=== PATIENT | male | born 1950 | race Caucasian/White ===

== ENCOUNTER 2018-05-03 10:39 | Emergency (ER) | payer OTHER ==
--- OUTSIDE RECORDS SUMMARY | 2018-05-03 11:24 | XMS REPORT ---
:1950 External Reference #:[id number] Author Organization [facility] Address [address], [address] [place] [address] Phone [phone] Care Team Providers Name Role Phone Janine Santos MD Care Team Information Winery Worker Unavailable Janine Santos MD Primary Care Physician Unavailable Payers Type Date Identification Numbers Payment Provider Subscriber Commercial Policy Number: [id number] [employer] [facility] Alley Jerez PayID: [id number] [address] [place] [address] Health Maintenance Expires: Policy Number: Inactice DO Not Alley Jerez [facility] ([facility] [place], [place]) 06/22/2012 [id number] Use PayID: [id number] [facility] Problems Date Description Provider Status Onset: 04/20/2014 Disorder of bursa of shoulder Logan George DGeeO. Active region Onset: 10/11/2016 Essential hypertension Tracy Calderon M.D. Active Onset: 10/11/2016 Mixed hyperlipidemia Tracy Calderon M.D. Active Onset: 03/03/2012 Localized, primary osteoarthritis Anju Huynh [facility] Active of the shoulder region Onset: 02/24/2018 Other hemorrhoids Jerardo Hernandes MD Active Onset: 11/05/2017 Radial styloid tenosynovitis Chelle Bryson MD Active Onset: 11/05/2017 Joint pain in left hand Chelle Bryson MD Active Onset: 08/22/2017 Actinic keratosis Tracy Calderon M.D. Active Onset: 08/22/2017 Insomnia Tracy Calderon M.D. Active Onset: 08/22/2017 Anxiety state Tracy Calderon M.D. Active Onset: 06/24/2017 Screening for malignant neoplasm Gagan Cardozo M.D. 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 soda ( 4-5x weekly) Daily Caffeine Consumes on average 1 cup of regular coffee per day Allergies, Adverse Reactions, Alerts Date Description Reaction Status Severity Comments 04/20/2014 NKDA active Medications Medication Date Status Form Strength Qnty SIG Indications Ordering Provider Zinc Oxide 01/20/ Active Ointment 20% 85.05 1 unit per K64.8 Cecilio 2017 gm rectum , Jerardo, twice a day as needed diclofenac 3% metronidazo le2% nifedipine 0.5%, emollient xematop Paroxetine HCL 09/08/ Active Tablets 30mg 90tab 1 tab by Tom 2017 s mouth every MD Janine day Potassium 11/13/ Active Tablets 20Meq 90tab take one Daryl Santos Jessica ER 2016 ER s tablet by MD Janine mouth every day Amlodipine 10/23/ Active Tablets 2.5mg 90tab 1 tab by Yumiko Besylate 2016 s mouth every Tracy, daily M.D. Fosinopril Sodium 10/15/ Active Tablets 40mg 90tab Take One I10 Valdez Calderon s Tablet By Tracy, Mouth Every M.D. Day Atenolol-Chlortha 10/11/ Active Tablets 100-25mg 90tab Take One I10 tang Calderon 2016 s Tablet By Tracy, Mouth Every M.D. Day Pravastatin / Active Tablets 20mg 90tab take one Tom, Sodium 0000 s tablet by MD Janine mouth every day Multi Complete / Active Capsules 1 by mouth Unknown 0000 every day Fish Oil / Active Capsules 1000mg by mouth Unknown 0000 every day OTC Prostrate / Active 1 po daily Unknown 0000 Metamucil Smooth / Active Powder 58.6% daily Unknown Texture 0000 Fleet Enema 01/20/ Hx Enema 7- 133ml 1 unit per K64.8 Cecilio 2018 - 8ML rectum once , Jerardo, 02/24/ at night 2017 and once in morning Paroxetine HCL 08/22/ Hx Tablets 20mg 90tab 1 by mouth F41.9 Yumiko 2017 - s every day Tracy, 09/08/ M.D. 2017 Paroxetine HCL 07/25/ Hx Tablets 20mg 30tab 1 by mouth F43.0 Yumiko 2017 - s every day Tracy, 08/22/ M.D. 2018 Triazolam 07/03/ Hx Tablets 0.25mg 30tab take one G47.00 Yumiko 2017 - s tablet by Tracy, 11/05/ mouth at M.D. 2018 bedtime as needed for sleep maximum daily dose=1 Reference #: [id number] Cyclobenzaprine 06/24/ Hx Tablets 5mg 1-2 tabs by M62.838 REBECCA Calderon 2017 - mouth every Tracy, 06/24/ night at M.D. 2018 bedtime Cyclobenzaprine 10/11/ Hx Tablets 5mg 30tab 1-2 tabs by M62.838 Yumiko HCL 2016 - s mouth tid Tracy, 06/24/ muscle M.D. 2018 spasms Meloxicam 04/20/ Hx Tablets 15mg 30tab 1 by mouth Doris 2013 - s every day Logan 10/11/ D., D.O. 2016 Anexsia 07/15/ Hx Tablets 5-500mg 40tab take 1-2 Yaima, 2011 - s tablets po MD Kirby 04/21/ q 6hrs prn 2017 pain. Multivitamins 00// Hx Capsules 90cap 1 by mouth Unknown 0000 - s every day 2013 Fish Oil / Hx Capsules Unknown Concentrate 0000 - 2013 Gemfibrozil / Hx Tablets 60tab 1 po bid Unknown 0000 - s 2016 Fosinopril Sodium /00/ Hx Tablets 1 po qd Unknown 0000 - 2016 Atenolol/Chlortha / Hx Tablets 90tab 1 tab po qd Unknown lidone 0000 - s qam 2016 Atenolol / Hx Tablets 100mg 1 by mouth Unknown 0000 - every day 2016 Fosinopril Sodium / Hx Tablets 20mg 1 tab PO Q I10 Unknown 0000 - daily 2016 Pravastatin / Hx Tablets 10mg 30tab one PO qd Clune, Sodium - s in addition Jenniferl 20 mg eigh, DIRECTOR OF OFFICIATING 2017 Medications Administered in Office Medication Date Status Form Strength Qnty SIG Indications Ordering Provider Depomedrol Administered Injection Bryson, 40mg/1cc 018 MD Chelle Depomedrol Administered Injection Huynh, 40mg/1cc 013 JOEL Whitehead Depomedrol Administered Injection Roque, 40mg/1cc 007 Val Craig MD Immunizations CPT Code Status Date Vaccine Lot # [id number] Given 02/26/2018 Influenza High Dose [id number] Given 02/21/2017 Influenza High Dose [id number] Given Unknown Tdap injection Vital Signs Date Vital Result Comment 04/07/2018 BP Systolic Sitting Left Arm 140 mmHg BP Diastolic Sitting Left Arm 78 mmHg Heart Rate 54 /min Respiratory Rate 16 /min Height 71 inches 5'11" Weight 236.00 lb BMI (Body Mass Index) 32.9 kg/m2 BSA (Body Surface Area) 2.26 m2 [place] body weight in kilograms 78 03/04/2018 BP Systolic Sitting Right Arm 132 mmHg BP Diastolic Sitting Right Arm 73 mmHg Body Temperature 97.1 F Heart Rate 46 /min Respiratory Rate 17 /min Height 71 inches 5'11" Weight 236.00 lb BMI (Body Mass Index) 32.9 kg/m2 BSA (Body Surface Area) 2.26 m2 [place] body weight in kilograms 78 O2 % BldC Oximetry 98 % 02/26/2018 BP Systolic 132 mmHg left wrist BP Diastolic 65 mmHg left wrist Body Temperature 97.2 F Heart Rate 58 /min Respiratory Rate 20 /min Height 71 inches 5'11" Weight 233.00 lb BMI (Body Mass Index) 32.5 kg/m2 BSA (Body Surface Area) 2.25 m2 [place] body weight in kilograms 78 O2 % BldC Oximetry 97 % 02/24/2018 BP Systolic Sitting Left Arm 140 mmHg BP Diastolic Sitting Left Arm 80 mmHg Heart Rate 56 /min Respiratory Rate 16 /min Height 71 inches 5'11" Weight 233.00 lb BMI (Body Mass Index) 32.5 kg/m2 BSA (Body Surface Area) 2.25 m2 [place] body weight in kilograms 78 01/20/2018 BP Systolic Sitting Left Arm 126 mmHg BP Diastolic Sitting Left Arm 78 mmHg Heart Rate 56 /min Respiratory Rate 16 /min Height 71 inches 5'11" Weight 234.00 lb BMI (Body Mass Index) 32.6 kg/m2 BSA (Body Surface Area) 2.25 m2 [place] body weight in kilograms 78 12/22/2017 BP Systolic 139 mmHg BP Diastolic 71 mmHg Body Temperature 97.7 F Heart Rate 51 /min Respiratory Rate 16 /min Height 71 inches 5'11" Weight 232.00 lb BMI (Body Mass Index) 32.4 kg/m2 BSA (Body Surface Area) 2.25 m2 [place] body weight in kilograms 78 O2 % BldC Oximetry 97 % Pain Level 0 12/22/2017 BP Systolic Sitting Left Arm 140 mmHg BP Diastolic Sitting Left Arm 66 mmHg Body Temperature 98.0 F Heart Rate 60 /min Respiratory Rate 18 /min Height 71 inches 5'11" Weight 233.00 lb BMI (Body Mass Index) 32.5 kg/m2 BSA (Body Surface Area) 2.25 m2 [place] body weight in kilograms 78 O2 % BldC Oximetry 96 % 11/26/2017 BP Systolic Sitting Left Arm 120 mmHg BP Diastolic Sitting Left Arm 60 mmHg Body Temperature 97.6 F Heart Rate 56 /min Height 71 inches 5'11" Weight 239.12 lb BMI (Body Mass Index) 33.3 kg/m2 BSA (Body Surface Area) 2.27 m2 [place] body weight in kilograms 78 11/12/2017 BP Systolic Sitting Left Arm 123 mmHg BP Diastolic Sitting Left Arm 71 mmHg Body Temperature 97.8 F Heart Rate 64 /min Respiratory Rate 16 /min Height 71 inches 5'11" [place] body weight in kilograms 78 11/05/2017 BP Systolic 134 mmHg BP Diastolic 76 mmHg Heart Rate 50 /min Height 71 inches 5'11" Weight 229.12 lb BMI (Body Mass Index) 32.0 kg/m2 BSA (Body Surface Area) 2.23 m2 [place] body weight in kilograms 78 09/23/2017 BP Systolic Sitting Left Arm 118 mmHg BP Diastolic Sitting Left Arm 62 mmHg Heart Rate 62 /min Height 70 inches 5'10" Weight 225.38 lb BMI (Body Mass Index) 32.3 kg/m2 BSA (Body Surface Area) 2.20 m2 [place] body weight in kilograms 75 08/22/2017 BP Systolic 106 mmHg BP Diastolic 62 mmHg Heart Rate 68 /min Height 71 inches 5'11" Weight 212.00 lb BMI (Body Mass Index) 29.6 kg/m2 BSA (Body Surface Area) 2.16 m2 [place] body weight in kilograms 78 O2 % BldC Oximetry 98 % 07/25/2017 BP Systolic 128 mmHg BP Diastolic 76 mmHg Body Temperature 96.3 F Heart Rate 64 /min Height 71 inches 5'11" Weight 221.00 lb BMI (Body Mass Index) 30.8 kg/m2 BSA (Body Surface Area) 2.20 m2 [place] body weight in kilograms 78 O2 % BldC Oximetry 97 % 07/11/2017 BP Systolic 138 mmHg BP Diastolic 62 mmHg Body Temperature 97.4 F Heart Rate 62 /min Height 71 inches 5'11" Weight 224.50 lb BMI (Body Mass Index) 31.3 kg/m2 BSA (Body Surface Area) 2.21 m2 [place] body weight in kilograms 78 O2 % BldC Oximetry 97 % 07/03/2017 BP Systolic 136 mmHg BP Diastolic 78 mmHg Body Temperature 97.5 F Heart Rate 68 /min Height 71 inches 5'11" Weight 230.00 lb BMI (Body Mass Index) 32.1 kg/m2 BSA (Body Surface Area) 2.24 m2 [place] body weight in kilograms 78 O2 % BldC Oximetry 98 % 06/24/2017 BP Systolic 147 mmHg BP Diastolic 80 mmHg Body Temperature 98.7 F 37.1C Heart Rate 58 /min Respiratory Rate 18 /min Height 71 inches 5'11" Weight 232.00 lb BMI (Body Mass Index) 32.4 kg/m2 BSA (Body Surface Area) 2.25 m2 [place] body weight in kilograms 78 O2 % BldC Oximetry 99 % Pain Level 0 05/29/2017 BP Systolic Sitting Left Arm 128 mmHg BP Diastolic Sitting Left Arm 78 mmHg Height 71 inches 5'11" Weight 230.12 lb BMI (Body Mass Index) 32.1 kg/m2 BSA (Body Surface Area) 2.24 m2 [place] body weight in kilograms 78 02/21/2017 BP Systolic 142 mmHg BP Diastolic 82 mmHg Body Temperature 97.5 F Heart Rate 60 /min Height 71 inches 5'11" Weight 230.00 lb BMI (Body Mass Index) 32.1 kg/m2 BSA (Body Surface Area) 2.24 m2 [place] body weight in kilograms 78 O2 % BldC Oximetry 97 % 11/12/2016 BP Systolic Sitting Left Arm 130 mmHg BP Diastolic Sitting Left Arm 60 mmHg Height 71 inches 5'11" Weight 224.38 lb BMI (Body Mass Index) 31.3 kg/m2 BSA (Body Surface Area) 2.21 m2 [place] body weight in kilograms 78 10/11/2016 BP Systolic Sitting Right Arm 200 mmHg BP Diastolic Sitting Right Arm 102 mmHg BP Systolic Sitting Left Arm 200 mmHg BP Diastolic Sitting Left Arm 100 mmHg Heart Rate 56 /min Height 71 inches 5'11" Weight 232.25 lb BMI (Body Mass Index) 32.4 kg/m2 BSA (Body Surface Area) 2.25 m2 O2 % BldC Oximetry 98 % 04/20/2014 BP Systolic Sitting Left Arm 106 mmHg BP Diastolic Sitting Left Arm 58 mmHg Height 71 inches 5'11" Weight 221.00 lb BMI (Body Mass Index) 30.8 kg/m2 BSA (Body Surface Area) 2.20 m2 03/15/2013 BP Systolic Sitting Right Arm 132 mmHg BP Diastolic Sitting Right Arm 76 mmHg Height 71.5 inches 5'11.50" Weight 223.00 lb BMI (Body Mass Index) 30.7 kg/m2 BSA (Body Surface Area) 2.22 m2 07/15/2011 Height 71 inches 5'11" Weight 225.00 lb 07/25/2010 Height 71 inches 5'11" Weight 235.00 lb 01/07/2006 Height 70 inches 5'10" Weight 229.00 lb 03/15/2005 Height 70 inches 5'10" Weight 233.00 lb Results Test Date Test Result H/L Range Note Laboratory test finding 12/22/2017 Prostate Specific 1.06 ng/mL < 4.0 1 , 2 Antigen Comprehensive Metabolic 11/27/2017 Glucose 159 mg/dL High 74-106 3 Panel BUN 15 mg/dL 7-18 3 Creatinine 0.9 mg/dL 0.6-1.3 3 Glom Filtration Rate, Estimate >60 mL/min >60 3 If >60 mL/min >60 3, 4 BUN/Creat 16.6 ratio 3 Sodium 139 mmol/L 136-145 3 Potassium 3.6 mmol/L 3.5-5.1 3 Chloride 104 mmol/L 98-107 3 Carbon Dioxide 27 mmol/L 21-32 3 Anion Gap 8 mEq/L 8-16 3 Calcium 9.1 mg/dL 8.5-10.1 3 Total Protein 7.1 g/dL 6.4-8.2 3 Albumin 3.7 g/dL 3.4-5.0 3 Globulin 3.4 g/dL 1.9-4.3 3 Alb/Glob 1.1 ratio 3 Bilirubin,Total 0.5 mg/dL 0.2-1.0 3 Sgot/Ast 28 U/L 15-37 3 SGPT/Alt 34 U/L 12-78 3 Alkaline Phosphatase 61 U/L 45-117 3 LDL Cholesterol Profile 11/27/2017 Cholesterol 178 mg/dL <200 3, 5 Triglycerides 296 mg/dL High <150 3, 6 HDL Cholesterol 34 mg/dL Low >40 3, 7 LDL-Cholesterol 85 mg/dL < 100 3, 8 Glycohemoglobin A1c 11/27/2017 Glycohemoglobin (A1c) 6.2 % 4.2-6.3 3, 9 eAG 131 mg/dL 3 Laboratory test finding 07/25/2017 Thyroid Stim Hormone 1.07 uIU/mL 0.30- 4.20 10 Free T3 3.02 pg/mL 2.18-3.98 10 Triiodothyronine,Total 118 ng/dL 71-180 10 T3 Uptake 33 % 31-39 10 Free T4 1.17 ng/dL 0.76-1.46 10 Thyroxine (T4) 12.4 g/dL 4.7-13.3 10 Thyroid Peroxidase Antibodies 11 IU/mL 0-34 10, 11 Thyroglobulin Antibody < 1.0 IU/mL 0.0-0.9 10, 12 Thyrotropin Receptor Antibody <0.50 IU/L 0.00-1.75 10 Glycohemoglobin A1c 07/11/2017 Glycohemoglobin (A1c) 6.0 % 4.2-6.3 13, 14 eAG 126 mg/dL 13 Liver Function Tests 07/11/2017 Total Protein 7.9 g/dL 6.4-8.2 13 Albumin 4.1 g/dL 3.4-5.0 13 Globulin 3.8 g/dL 1.9-4.3 13 Alb/Glob 1.1 ratio 13 Bilirubin,Total 0.7 mg/dL 0.2-1.0 13 Bilirubin,Direct 0.1 mg/dL 0.0-0.2 13 Bilirubin,Indirect 0.6 mg/dL 0.0-0.9 13 Sgot/Ast 37 U/L 15-37 13 SGPT/Alt 59 U/L 12-78 13 Alkaline Phosphatase 74 U/L 45-117 13 Laboratory test finding 07/11/2017 Sedimentation Rate 4 mm/hr 0-20 13, 15 C-Reactive Protein,Cardiac 3.41 mg/L <3.0 13 CBS W/Automated Diff 07/03/2017 White Blood Count 9.4 K/uL 3.4-10.5 16 Red Blood Count 5.01 M/uL 4.20-5.80 16 Hemoglobin 15.7 gm/dL 12.8-17.0 16 Hematocrit 43.8 % 38.0-48.0 16 Mean Cell Volume 87.4 fl 80.0-96.0 16 Mean Corpuscular HGB 31.3 pg 27.0-33.0 16 Mean Corpuscular HGB Conc 35.8 g/dL 31.7-36.0 16 Platelet Count 233 K/uL 155-360 16 Red Cell Distri Width SD 42.1 fl 36-51 16 Red Cell Distri Width %CV 13.6 % 11.6-15.8 16 Mean Platelet Volume 11.0 fL High 6.6-10.6 16 Neut% 67.4 % 33.0-73.0 16 Lymph % 21.5 % 20.0-42.0 16 Inyo % 9.6 % 0.0-10.0 16 Eo% 1.3 % 0.0-6.6 16 Bas% 0.2 % 0.0-1.1 16 Neut# 6.31 K/uL 1.8-7.0 16 Lymph # 2.01 K/uL 1.0-4.0 16 [place]yo # 0.90 K/uL High 0.0-0.8 16 Eos # 0.12 K/uL 0.0-0.5 16 Baso # 0.02 K/uL 0.0-0.1 16 TSH Reflex FT4 And/Or FT3 07/03/2017 Thyroid Stim Hormone 1.58 uIU/mL 0.30-4.20 16 Reflex add FT3? Y 16 Reflex add FT4? Y 16 Basic Metabolic Panel 07/03/2017 Glucose 144 mg/dL High 74-106 16 BUN 16 mg/dL 7-18 16 Creatinine 1.0 mg/dL 0.6-1.3 16 Glom Filtration Rate, Estimate >60 mL/min >60 16 If >60 mL/min >60 16, 17 BUN/Creat 16.0 ratio 16 Sodium 140 mmol/L 136-145 16 Potassium 3.6 mmol/L 3.5-5.1 16 Chloride 105 mmol/L 98-107 16 Carbon Dioxide 29 mmol/L 21-32 16 Anion Gap 6 mEq/L Low 8-16 16 Calcium 9.2 mg/dL 8.5-10.1 16 Reflex add FT3? Y 16 Reflex add FT4? Y 16 Basic Metabolic Panel 05/29/2017 Glucose 121 mg/dL High 74-106 18 BUN 15 mg/dL 7-18 18 Creatinine 1.0 mg/dL 0.6-1.3 18 Glom Filtration Rate, Estimate >60 mL/min >60 18 If >60 mL/min >60 18, 19 BUN/Creat 15.0 ratio 18 Sodium 140 mmol/L 136-145 18 Potassium 3.6 mmol/L 3.5-5.1 18 Chloride 105 mmol/L 98-107 18 Carbon Dioxide 32 mmol/L 21-32 18 Anion Gap 3 mEq/L Low 8-16 18 Calcium 9.1 mg/dL 8.5-10.1 18 LDL Cholesterol Profile 02/28/2017 Cholesterol 184 mg/dL <200 20, 21 Triglycerides 270 mg/dL High <150 20, 22 HDL Cholesterol 35 mg/dL Low >40 20, 23 LDL-Cholesterol 95 mg/dL < 100 20, 24 Glycohemoglobin A1c 02/28/2017 Glycohemoglobin (A1c) 6.0 % 4.2-6.3 20, 25 eAG 126 mg/dL 20 Basic Metabolic Panel 02/21/2017 Glucose 154 mg/dL High 74-106 26 BUN 13 mg/dL 7-18 26 Creatinine 1.1 mg/dL 0.6-1.3 26 Glom Filtration Rate, Estimate >60 mL/min >60 26 If >60 mL/min >60 26, 27 BUN/Creat 11.8 ratio 26 Sodium 141 mmol/L 136-145 26 Potassium 3.6 mmol/L 3.5-5.1 26 Chloride 105 mmol/L 98-107 26 Carbon Dioxide 32 mmol/L 21-32 26 Anion Gap 4 mEq/L Low 8-16 26 Calcium 9.0 mg/dL 8.5-10.1 26 Reflex add FT3? Y 26 Reflex add FT4? Y 26 Magnesium 02/21/2017 Magnesium 1.9 mg/dL 1.8-2.4 26 Reflex add FT3? Y 26 Reflex add FT4? Y 26 LDL Cholesterol Profile 02/21/2017 Cholesterol 161 mg/dL <200 26, 28 Triglycerides 496 mg/dL High <150 26, 29 HDL Cholesterol 34 mg/dL Low >40 26, 30 LDL-Cholesterol TNP mg/dL < 100 26, 31 Reflex add FT3? Y 26 Reflex add FT4? Y 26 TSH Reflex FT4 And/Or FT3 02/21/2017 Thyroid Stim Hormone 1.16 uIU/mL 0.30-4.20 26 Reflex add FT3? Y 26 Reflex add FT4? Y 26 Basic Metabolic Panel 11/12/2016 Glucose 122 mg/dL High 74-106 32 BUN 12 mg/dL 7-18 32 Creatinine 1.0 mg/dL 0.6-1.3 32 Glom Filtration Rate, Estimate >60 mL/min >60 32 If >60 mL/min >60 32, 33 BUN/Creat 12.0 ratio 32 Sodium 142 mmol/L 136-145 32 Potassium 3.3 mmol/L Low 3.5-5.1 32 Chloride 106 mmol/L 98-107 32 Carbon Dioxide 31 mmol/L 21-32 32 Anion Gap 5 mEq/L Low 8-16 32 Calcium 8.9 mg/dL 8.5-10.1 32 CBS W/Automated Diff 10/11/2016 White Blood Count 7.5 K/uL 3.4-10.5 32 Red Blood Count 4.65 M/uL 4.20-5.80 32 Hemoglobin 14.2 gm/dL 12.8-17.0 32 Hematocrit 41.2 % 38.0-48.0 32 Mean Cell Volume 88.6 fl 80.0-96.0 32 Mean Corpuscular HGB 30.5 pg 27.0-33.0 32 Mean Corpuscular HGB Conc 34.5 g/dL 31.7-36.0 32 Platelet Count 203 K/uL 150-400 32 Red Cell Distri Width SD 43.3 fl 36-51 32 Red Cell Distri Width %CV 13.8 % 11.6-15.8 32 Mean Platelet Volume 11.4 fL High 6.6-10.6 32 Neut% 71.9 % 33.0-73.0 32 Lymph % 17.2 % Low 20.0-42.0 32 Inyo % 8.6 % 0.0-10.0 32 Eo% 2.0 % 0.0-6.6 32 Bas% 0.3 % 0.0-1.1 32 Neut# 5.42 K/uL 1.8-7.0 32 Lymph # 1.30 K/uL 1.0-4.0 32 Inyo # 0.65 K/uL 0.0-0.8 32 Eos # 0.15 K/uL 0.0-0.5 32 Baso # 0.02 K/uL 0.0-0.1 32 Comprehensive Metabolic Panel 10/11/2016 Glucose 108 mg/dL High 74-106 32 BUN 13 mg/dL 7-18 32 Creatinine 1.0 mg/dL 0.6-1.3 32 Glom Filtration Rate, Estimate >60 mL/min >60 32 If >60 mL/min >60 32, 34 BUN/Creat 13.0 ratio 32 Sodium 142 mmol/L 136-145 32 Potassium 4.0 mmol/L 3.5-5.1 32 Chloride 107 mmol/L 98-107 32 Carbon Dioxide 30 mmol/L 21-32 32 Anion Gap 5 mEq/L Low 8-16 32 Calcium 8.6 mg/dL 8.5-10.1 32 Total Protein 6.8 g/dL 6.4-8.2 32 Albumin 3.6 g/dL 3.4-5.0 32 Globulin 3.2 g/dL 1.9-4.3 32 Alb/Glob 1.1 ratio 32 Bilirubin,Total 0.5 mg/dL 0.2-1.0 32 Sgot/Ast 34 U/L 15-37 32 SGPT/Alt 51 U/L 12-78 32 Alkaline Phosphatase 54 U/L 45-117 32 Reflex add FT3? Y 32 Reflex add FT4? Y 32 TSH Reflex FT4 And/Or FT3 10/11/2016 Thyroid Stim Hormone 1.44 uIU/mL 0.30-4.20 32 Reflex add FT3? Y 32 Reflex add FT4? Y 32 1 M65.4,Z12.5 2 THIS ASSAY IS NOT INTENDED A CANCER SCREENING TEST The concentration of PSA in a given specimen, determined with assays from different manufacturers, can vary due to differences in assay methods and reagent specificity. Values obtained from different assay methods cannot be used interchangeably. Method: Ravel Lawta Chemiluminescent immunoassay. 3 I10 E78.5 4 Note: Persistent reduction for 3 months or more in an eGFR <60 mL/min/1.73 m2 defines CKD. Patients with eGFR values >/=60 mL/min/1.73 m2 may also have CKD if evidence of persistent proteinuria is present. The original MDRD equation for estimated GFR is not valid for patients less than 18 years of age. Additional information may be found at www.kdoqi.org. 5 Reference Guidelines*: Desirable: ........... < 200 mg/dL Borderline High: ..... 200-239 mg/dL High: ................ >=240 mg/dL * The National Cholesterol Education Program (NCEP) 6 Reference Guidelines*: Normal: ............. < 150 mg/dL Borderline High: .... 150-199 mg/dL High: ............... 200-499 mg/dL Very High: .......... > 500 mg/dL * Source: National Cholesterol Education Program (NCEP) 7 Reference Guidelines*: Low HDL: ..... < 40 mg/dL Normal: ..... 40-60 mg/dL Desirable: ... > 60 mg/dL *The National Cholesterol Education Program(NCEP) 8 Reference Guidelines*: Optimal:........... <100 mg/dL Near Optimal....... 100-129 mg/dL Borderline High.... 130-159 mg/dL High............... 160-189 mg/dL Very High.......... >=190 mg/dL * Source: National Cholesterol Education Program (NCEP) 9 Elevated levels of HbA1c suggest the need for more aggressive treatment of glycemia. The [place] [employer] recommends that a primary goal of therapy should be a HbA1c of <7% and that physicians should re-evaluate the treatment regimen in patients with HbA1c values consistently >8%. 10 R00.2 11 Performed at: - [facility] [address] [id number] Ballast Inspector: Hola Arora MD, Phone: [phone] Performed at: - [facility] [address] [id number] Ballast Inspector: Tita Gordillo MD, Phone: [phone] 12 Thyroglobulin Antibody measured by Alpesh Marsha Methodology 13 R73.09 R10.12 14 Elevated levels of HbA1c suggest the need for more aggressive treatment of glycemia. The [place] [employer] recommends that a primary goal of therapy should be a HbA1c of <7% and that physicians should re-evaluate the treatment regimen in patients with HbA1c values consistently >8%. 15 Method: Sediplast Modified Westergren 16 R61 17 Note: Persistent reduction for 3 months or more in an eGFR <60 mL/min/1.73 m2 defines CKD. Patients with eGFR values >/=60 mL/min/1.73 m2 may also have CKD if evidence of persistent proteinuria is present. The original MDRD equation for estimated GFR is not valid for patients less than 18 years of age. Additional information may be found at www.kdoqi.org. 18 I10 19 Note: Persistent reduction for 3 months or more in an eGFR <60 mL/min/1.73 m2 defines CKD. Patients with eGFR values >/=60 mL/min/1.73 m2 may also have CKD if evidence of persistent proteinuria is present. The original MDRD equation for estimated GFR is not valid for patients less than 18 years of age. Additional information may be found at www.[email or web address]. 20 R73.09 E78.2 21 Reference Guidelines*: Desirable: ........... < 200 mg/dL Borderline High: ..... 200-239 mg/dL High: ................ >=240 mg/dL * The National Cholesterol Education Program (NCEP) 22 Reference Guidelines*: Normal: ............. < 150 mg/dL Borderline High: .... 150-199 mg/dL High: ............... 200-499 mg/dL Very High: .......... > 500 mg/dL * Source: National Cholesterol Education Program (NCEP) 23 Reference Guidelines*: Low HDL: ..... < 40 mg/dL Normal: ..... 40-60 mg/dL Desirable: ... > 60 mg/dL *The National Cholesterol Education Program(NCEP) 24 Reference Guidelines*: Optimal:........... <100 mg/dL Near Optimal....... 100-129 mg/dL Borderline High.... 130-159 mg/dL High............... 160-189 mg/dL Very High.......... >=190 mg/dL * Source: National Cholesterol Education Program (NCEP) 25 Elevated levels of HbA1c suggest the need for more aggressive treatment of glycemia. The [place] [employer] recommends that a primary goal of therapy should be a HbA1c of <7% and that physicians should re-evaluate the treatment regimen in patients with HbA1c values consistently >8%. 26 E87.6 E78.2 27 Note: Persistent reduction for 3 months or more in an eGFR <60 mL/min/1.73 m2 defines CKD. Patients with eGFR values >/=60 mL/min/1.73 m2 may also have CKD if evidence of persistent proteinuria is present. The original MDRD equation for estimated GFR is not valid for patients less than 18 years of age. Additional information may be found at www.kdoqi.org. 28 Reference Guidelines*: Desirable: ........... < 200 mg/dL Borderline High: ..... 200-239 mg/dL High: ................ >=240 mg/dL * The National Cholesterol Education Program (NCEP) 29 Reference Guidelines*: Normal: ............. < 150 mg/dL Borderline High: .... 150-199 mg/dL High: ............... 200-499 mg/dL Very High: .......... > 500 mg/dL * Source: National Cholesterol Education Program (NCEP) 30 Reference Guidelines*: Low HDL: ..... < 40 mg/dL Normal: ..... 40-60 mg/dL Desirable: ... > 60 mg/dL *The National Cholesterol Education Program(NCEP) 31 (LDL CANNOT BE CALCULATED FOR TRIGS >400 mg/dL) 32 I10 33 Note: Persistent reduction for 3 months or more in an eGFR <60 mL/min/1.73 m2 defines CKD. Patients with eGFR values >/=60 mL/min/1.73 m2 may also have CKD if evidence of persistent proteinuria is present. The original MDRD equation for estimated GFR is not valid for patients less than 18 years of age. Additional information may be found at www.kdoqi.org. 34 Note: Persistent reduction for 3 months or more in an eGFR <60 mL/min/1.73 m2 defines CKD. Patients with eGFR values >/=60 mL/min/1.73 m2 may also have CKD if evidence of persistent proteinuria is present. The original MDRD equation for estimated GFR is not valid for patients less than 18 years of age. Additional information may be found at www.kdoqi.org. Procedures Date CPT Code Description Status Comment 03/04/2018 97124 Aspiration/Injection joint Completed intermediate(wrist/ankle/elbo w/olbursa 02/02/2018 Flexible Sigmoidoscopy Completed Document: 02/02/18 - Op Report - Sigmoidoscopy/Band Document: 02/02/18 - Flex Sig & Banding Pics 02/02/2018 01350 Sigmoidoscopy W/ Band Completed Ligation(S) 11/05/2017 94052 Radiology, Hand: Minimum Completed Three Views 07/25/2017 01813 EKG-Tracing And Report Completed 06/24/2017 48715 Measurement Post Voiding Completed Residual Urine By Ultrasound,Non-Imaging 04/20/2014 09700 Radiology, Shoulder: Two Completed Views (Sso) 02/11/[address] Pena, 10 years Document: 02/11/14 - Colonoscopy 09/17/2013 92859 Echocardiogram Complete Completed 04/13/201360842 Asp./Injection major joint Completed 03/15/2013 11511 Radiology, Distal Femur--Knee Completed 1 Or 2 Views 03/15/2013 63472 Radiology, Distal Femur--Knee Completed 1 Or 2 Views 03/03/201256010 Asp./Injection major joint Completed 09/18/2011 Asp./Injection major joint Completed 07/29/2011 Asp./Injection major joint Completed 10/02/2010 Asp./Injection major joint Completed 08/11/2008 Colonoscopy Completed Document: 08/11/08 - Colon & Bx 11/21/2006 90806 Control Nasal Completed Hemorrh./Ant./Simple 10/14/2006 Asp./Injection major joint Completed 09/26/2006 61351 Nasal Endoscopy, Diag. Completed 06/27/2005 Aspiration/Injection joint Completed intermediate(wrist/ankle/elbo w/olbursa 03/15/2005 Aspiration/Injection joint Completed intermediate(wrist/ankle/elbo w/olbursa 05/11/2002 Colonoscopy Completed Document: 05/11/02 - Colon & Bx Encounters Type Date Location Provider CPT E/M Dx Office Visit 04/07/2018 1:15[place] [address] K64.8 Office Visit 03/04/2018 10:15a [place] [address] M65.4 Office Visit 02/26/2018 1:00p [place] [address] F41.9 Z23 Office Visit 02/24/2018 3:30[place] [address] K64.8 Office Visit 01/20/2018 3:15[place] [address] K64.8 Office Visit 12/22/2017 8:30a [place] [address] M65.4 Office Visit 12/22/2017 1:00p Urology Gagan Cardozo M.D. 15327 Z12.5 Office Visit 11/26/2017 1:00p Family Medicine Tracy Calderon M.D. 93779 Z00.01 I10 E78.5 F41.9 Office Visit 11/12/2017 2:45p Orthopaedic Office Anju Huynh 93127 M25.542 [facility] Office Visit 11/05/2017 11:00a [place] [address] M25.542 M65.4 Office Visit 09/23/2017 1:15p Family Medicine Tracy Calderon M.D. 76205 F41.9 G47.00 Office Visit 08/22/2017 2:30p Family Tracy Longoria M.D. 66971 F41.9 G47.00 L57.0 Office Visit 07/25/2017 11:30a Family Tracy Longoria M.D. 34674 R53.83 R00.2 G47.00 F43.0 Office Visit 07/11/2017 1:30p Family Medicine Tracy Calderon M.D. 95649 R73.09 R10.12 G47.00 Office Visit 07/03/2017 3:00p Family Tracy Longoria M.D. 36908 G47.00 R61 Office Visit 06/24/2017 4:15p Urology Gagan Cardozo M.D. 50609 Z12.5 Office Visit 05/29/2017 1:45p Family Medicine Tracy Calderon M.D. 94731 I10 E78.2 E87.6 N40.0 Office Visit 02/21/2017 1:30p Family Tracy Longoria M.D. 58961 I10 E78.2 E87.6 Z23 Office Visit 11/12/2016 2:45p Family Tracy Longoria M.D. 18314 I10 Office Visit 10/11/2016 1:45p Family Medicine Tracy Calderon M.D. 63975 I10 E78.2 M62.838 Office Visit 04/20/2014 2:45p Orthopaedic Office Logan George D.OGee 31152 726.10 Office Visit 05/11/2013 2:30p Orthopaedic Office Huynh, Anju S., 44647 715.16 RPAC 719.46 Office Visit 04/13/2013 1:30p Orthopaedic Office Huynh, Anju S., 42740 715.16 RPAC 719.46 Office Visit 03/15/2013 3:00p Orthopaedic Office Anju Huynh, 15072 719.46 RPAC 715.16 Office Visit 11/11/2006 2:30p [place] [address] 732.7 Office Visit 10/27/2006 3:45p Operating Room Giovanni Haas M.D. 40363 784.7 Office Visit 10/14/2006 11:00a Operating Room Giovanni Haas M.D. 98121 784.7 Office Visit 10/14/2006 9:30a [place] [address] 717.7 Office Visit 09/26/2006 2:00p Operating Room Giovanni Haas M.D. 74409 784.7 Office Visit 09/02/2006 9:45a [place] [address] 717.7 Plan of Care Future Appointment(s):06/03/2018 1:00 pm - Chelle Bryson MD at Orthopaedic Ec[facility]wh6308/26/2018 3:30 pm - Janine Santos MD at Family [facility]07/27/2019 1: 00 pm - Gagan Cardozo M.D. at [facility]67/16/2018 - Jerardo Hernandes MDK64.8 Other hemorrhoidsComments:patient to follow up as needed. Hopefully office will be in place by that timeFollow up:repeat colonoscopy in 2023
[2018-05-03 11:28] VITALS: BP 137/73
--- NOTE | 2018-05-03 11:42 | UC ---
Respiratory Complaint HPI - HPI Summary HPI Summary: The patient is a 67-year-old male who presents here with sinus congestion postnasal drip and cough for about 10 or 11 days. He states his symptoms have since moved down to his chest and he has noticed intermittent wheezing. He may be running a fever he is not sure. He has no shortness of breath. There's been no nausea vomiting or diarrhea. He states that during the particularly forceful paroxysm of coughing he developed sudden onset of right lateral chest pain as it hurts if he coughs or if he rolls over on his right side. - History of Current Complaint Chief Complaint: UCGeneralIllness Stated Complaint: COUGH,SORE ON R SIDE WHEN COUGHING Time Seen by Provider: 05/03/18 11:24 Hx Obtained From: Patient Onset/Duration: Gradual Onset, Lasting Days Timing: Constant Severity Initially: Mild Severity Currently: Mild Pain Intensity: 2 - worse with cough/laying on side Pain Scale Used: 0-10 Numeric Character: Cough: Nonproductive Aggravating Factors: Deep Breaths Alleviating Factors: Nothing Associated Signs And Symptoms: Positive: Fever - ?, Nasal Congestion - Allergies/Home Medications Allergies/Adverse Reactions: Allergies Allergy/AdvReac Type Severity Reaction Status Date / Time No Known Allergies Allergy Verified 05/03/18 11:23 Home Medications: Home Medications Atenolol/Chlorthalidone [Atenolol/Chlorthalidone 100-25 mg-] 1 tab PO DAILY 05/10 [History Confirmed 05/03/18] Fosinopril (NF) [Monopril (NF)] 20 mg PO DAILY 05/03/18 [History Confirmed 05/03] PARoxetine HCL TAB* [Paxil TAB*] 20 mg PO DAILY 05/03/18 [History Confirmed 05/10] Potassium Chlor TAB* [Klor Con ER TAB*] 20 meq PO DAILY 05/03/18 [History Confirmed 05/03/18] Pravastatin Sodium 20 mg PO DAILY 05/03/18 [History Confirmed 05/03/18] amLODIPine TAB* [Norvasc 5 mg TAB*] 1 tab PO DAILY 05/03/18 [History Confirmed 05/03/18] PMH/Surg Hx/FS Hx/Imm Hx Previously Healthy: Yes Endocrine History: Dyslipidemia Cardiovascular History: Hypertension - Surgical History Surgical History: Yes Surgery Procedure, Year, and Place: R WRIST SX. FATTY TUMOR REMOVED--RIGHT LOWER BACK - Social History Alcohol Use: None Substance Use Type: None Smoking Status (MU): Never Smoked Tobacco - Immunization History Most Recent Tetanus Shot: 04/15/[address] Case's office Review of Systems All Other Systems Reviewed And Are Negative: Yes Constitutional: Positive: Negative Skin: Positive: Negative Eyes: Positive: Negative ENT: Positive: Negative Respiratory: Positive: Cough Cardiovascular: Positive: Chest Pain Gastrointestinal: Positive: Negative Genitourinary: Positive: Negative Motor: Positive: Negative Neurovascular: Positive: Negative Musculoskeletal: Positive: Negative Neurological: Positive: Negative Psychological: Positive: Negative Is Patient Immunocompromised?: Yes Physical Exam Triage Information Reviewed: Yes Appearance: Well-Appearing, No Pain Distress, Well-Nourished Vital Signs: Initial Vital Signs Temp 97.8 F 05/03/18 11:22 Pulse 58 05/03/18 11:22 Resp 16 05/03/18 11:22 BP 137/73 05/03/18 11:22 Pulse Ox 99 05/03/18 11:22 Vital Signs Reviewed: Yes Eyes: Positive: Conjunctiva Clear ENT: Positive: Hearing grossly normal, Uvula midline. Negative: Pharyngeal erythema, Nasal congestion, Tonsillar swelling, Tonsillar exudate, Trismus, Muffled voice, Hoarse voice Neck: Positive: Supple, Nontender, No Lymphadenopathy Respiratory: Positive: Lungs clear, Normal breath sounds, No respiratory distress. Negative: Chest non-tender Cardiovascular: Positive: RRR, No Murmur Musculoskeletal: Positive: ROM Intact, No Edema Neurological: Positive: Alert Psychological Exam: Normal Skin Exam: Normal UC Diagnostic Evaluation - Laboratory O2 Sat by Pulse Oximetry: 99 - normal/not hypoxic - Radiology Radiology Interpretation Completed By: Radiologist Summary of Radiographic Findings: no fx/no ptx, no infiltrate Respiratory Course/Dx - Differential Dx/Diagnosis Provider Diagnoses: acute bronchitis. chest wall pain Discharge - Sign-Out/Discharge Documenting (check all that apply): Patient Departure All imaging exams completed and their final reports reviewed: Yes - Discharge Plan Condition: Stable Disposition: HOME Prescriptions: predniSONE [Deltasone 20 MG TAB] 40 mg PO DAILY #10 tab Patient Education Materials: Acute Bronchitis (ED), Chest Wall Pain (ED) Referrals: Janine Santos MD [Primary Care Provider] - - Billing Disposition and Condition Condition: STABLE Disposition: Home Images Front/Back of Body, Lg ([place]): 1 - tender
[2018-05-03] MEDS ORDERED: Albuterol HFA INHALER* 8 gm MDI INH ONE (12:39)
== END 2018-05-03 12:51 | disposition home or self-care (01) ==
LOC: UCCORT 10:39
DX: J20.9 Acute bronchitis, unspecified (principal); R07.89 Other chest pain
CPT/HCPCS: 99213; A9270-GY; G0463